=== PATIENT | female | born 1995 | race Caucasian/White ===

== ENCOUNTER 2020-04-01 16:33 | Emergency (ER) | payer OTHER ==
[~2020-04-01] VITALS: Ht 162.6 cm; Wt 90.7 kg
[2020-04-01 16:56] VITALS: BP 135/80
--- NOTE | 2020-04-01 17:50 | NUR ---
COVID19 TESTING DONE & SENT TO LAB.
== END 2020-04-01 17:51 | disposition home or self-care (01) ==
LOC: ER 16:39
DX: Z11.59 Encounter for screening for other viral diseases (principal)
CPT/HCPCS: 99283; C9803; U0003

== ENCOUNTER 2020-04-29 12:53 | Emergency (ER) | payer OTHER ==
[~2020-04-29] VITALS: Ht 162.6 cm; Wt 90.7 kg
[2020-04-29 13:28] VITALS: BP 129/82
--- NOTE | 2020-04-29 13:58 | NUR ---
covid swab sent
== END 2020-04-29 13:59 | disposition home or self-care (01) ==
LOC: ER 12:54
DX: Z20.828 Contact with and (suspected) exposure to other viral communicable diseases (principal)
CPT/HCPCS: 99283; C9803; U0003

== ENCOUNTER 2020-05-07 15:07 | Emergency (ER) | payer OTHER ==
[~2020-05-07] VITALS: Ht 162.6 cm; Wt 90.7 kg
[2020-05-07 15:11] VITALS: BP 128/81
--- NOTE | 2020-05-07 15:40 | NUR ---
covid 19 swab collected and sent to lab
--- NOTE | 2020-05-07 15:41 | NUR ---
Patient discharged to home in stable condition. Written and verbal after care instructions given. Patient verbalizes understanding of instruction.
== END 2020-05-07 15:41 | disposition home or self-care (01) ==
LOC: ER 15:09
DX: Z20.828 Contact with and (suspected) exposure to other viral communicable diseases (principal)
CPT/HCPCS: 99283; C9803; U0003

== ENCOUNTER 2020-08-04 14:47 | Emergency (ER) | payer OTHER ==
[~2020-08-04] VITALS: Ht 162.6 cm; Wt 90.7 kg
[2020-08-04 14:57] VITALS: BP 120/85
--- NOTE | 2020-08-04 15:44 | NUR ---
COVID SWAB SENT, Patient discharged to home in stable condition. Written and verbal after care instructions given. Patient verbalizes understanding of instruction.
== END 2020-08-04 15:45 | disposition home or self-care (01) ==
LOC: ER 14:48
DX: Z20.828 Contact with and (suspected) exposure to other viral communicable diseases (principal)
CPT/HCPCS: 99283; C9803; U0003

== ENCOUNTER 2020-08-18 11:34 | Emergency (ER) | payer OTHER ==
[~2020-08-18] VITALS: Ht 154.9 cm; Wt 75.7 kg
[2020-08-18 11:43] VITALS: BP 134/77
[2020-08-18] MEDS ORDERED: ACETAMINOPHEN ES 500 MG TABLET PO ONE (12:00)
[2020-08-18] MEDS ORDERED: ACETAMINOPHEN ES 500 MG TABLET ONE (12:03)
--- NOTE | 2020-08-19 18:17 | NUR ---
COVID PCR RESULT: NEGATIVE
== END 2020-08-18 12:27 | disposition home or self-care (01) ==
LOC: ER 11:35
DX: B34.9 Viral infection, unspecified (principal); R50.9 Fever, unspecified; Z20.828 Contact with and (suspected) exposure to other viral communicable diseases
CPT/HCPCS: 99283; C9803; U0003

== ENCOUNTER 2020-09-01 08:58 | Emergency (ER) | payer OTHER ==
[~2020-09-01] VITALS: Ht 162.6 cm; Wt 93.0 kg
[2020-09-01 09:10] VITALS: BP 132/79
== END 2020-09-01 10:11 | disposition home or self-care (01) ==
LOC: ER 09:06
DX: Z20.828 Contact with and (suspected) exposure to other viral communicable diseases (principal)
CPT/HCPCS: 99283; C9803; U0003

== ENCOUNTER 2020-09-11 14:02 | Emergency (ER) | payer OTHER ==
[~2020-09-11] VITALS: Ht 162.6 cm; Wt 85.7 kg
[2020-09-11 14:05] VITALS: BP 132/81
--- NOTE | 2020-09-11 14:42 | NUR ---
Patient discharged to home in stable condition. Written and verbal after care instructions given. Patient verbalizes understanding of instruction.
--- NOTE | 2020-09-12 10:16 | NUR ---
CALLED PT BUT NO ANSWER
== END 2020-09-11 15:07 | disposition home or self-care (01) ==
LOC: ER 14:03
DX: U07.1 COVID-19 (principal)
CPT/HCPCS: 99283; C9803; U0003

== ENCOUNTER 2021-06-22 11:55 | Emergency (ER) | payer OTHER ==
[~2021-06-22] VITALS: Ht 162.6 cm; Wt 72.6 kg
[2021-06-22 13:48] VITALS: BP 103/69
--- NOTE | 2021-06-22 14:03 | NUR ---
Patient discharged to home in stable condition. Written and verbal after care instructions given. Patient verbalizes understanding of instruction.
== END 2021-06-22 14:08 | disposition home or self-care (01) ==
LOC: ER 11:58
DX: S63.682A Other sprain of left thumb, initial encounter (principal); W23.0XXA Caught, crushed, jammed, or pinched between moving objects, initial encounter; Y93.89 Activity, other specified; Y92.89 Other specified places as the place of occurrence of the external cause; Y99.8 Other external cause status
CPT/HCPCS: 73130-TC

== ENCOUNTER 2021-08-14 17:04 | Emergency (ER) | payer SELFPAY ==
[~2021-08-14] VITALS: Ht 162.6 cm; Wt 72.6 kg
--- NOTE | 2021-08-14 17:04 | NUR ---
PT BIB SELF C/O UPPER ABDOMINAL PAIN SINCE SATURDAY NIGHT. PT IS AAOX4, NOT IN RESPIRATORY DISTRESS, V/S STABALE, KEPT RESTED AND COMFORTABLE. WILL CONTINUE TO MONITOR.
--- NOTE | 2021-08-14 17:37 | NUR ---
PT SEEN AND EXAMINEDB Y .
--- NOTE | 2021-08-14 17:40 | NUR ---
IV LINE ESTABLISHED BLOOD DRAWN AND SENT TO LAB.
--- NOTE | 2021-08-14 17:47 | NUR ---
[employer]ATOR AT BEDSIDE FOR ULTRASOUND.
[2021-08-14] MEDS ORDERED: MAG HYDROX/AL HYDROX/SIMETH 30 ML UDC ONE (17:48)
[2021-08-14] MEDS ORDERED: FAMOTIDINE/PF INJ 20 MG/2 ML VIAL IV ONE ×2 (17:49→18:00)
[2021-08-14] MEDS ORDERED: LIDOCAINE VISCOUS 2% UD 15 ML UDC ONE (17:49)
[2021-08-14 17:55] LABS: BASOPHILS # (AUTO) 0.1 K/uL (0.0-0.2); BASOPHILS % (AUTO) 1.6 % (0.0-2.0); EOSINOPHILS % (AUTO) 0.4 % (0.0-6.0); HEMATOCRIT 40 % (33-45); HEMOGLOBIN 13.4 g/dL (11.5-14.8); LYMPHOCYTES # (AUTO) 1.6 K/uL (0.8-4.8); LYMPHOCYTES % (AUTO) 21.1 % (20.0-44.0); MEAN CORPUSCULAR HGB CONC 34 g/dl (31.0-36.0); MEAN CORPUSCULAR VOLUME 90 fL (82-100); MONOCYTES # (AUTO) 0.6 K/uL (0.1-1.30); MONOCYTES % (AUTO) 7.7 % (2.0-12.0); NEUTROPHILS # (AUTO) 5.3 K/uL (1.8-8.9); NEUTROPHILS % (AUTO) 69.2 % (43.0-81.0); PLATELET COUNT (AUTO) 246 K/uL (150-450); RED BLOOD CELL COUNT(AUTO) 4.41 MIL/uL (4.0-5.2); WHITE BLOOD COUNT (AUTO) 7.6 K/uL (4.3-11.0)
[2021-08-14] MEDS ORDERED: MAG HYDROX/AL HYDROX/SIMETH 30 ML UDC PO ONE (18:00)
[2021-08-14] MEDS ORDERED: LIDOCAINE VISCOUS 2% UD 15 ML UDC PO ONE (18:00)
[2021-08-14 18:12] LABS: ALBUMIN 2.9 g/dL (3.4-5.0); BILIRUBIN,DIRECT 0.1 mg/dL (0.0-0.2); BILIRUBIN,TOTAL 0.2 mg/dL (0.2-1.0); CALCIUM, SERUM 8.7 mg/dL (8.5-10.1); CREATININE 0.8 mg/dL (0.6-1.3); POTASSIUM 3.7 mmol/L (3.5-5.1); TOTAL PROTEIN, SERUM 6.9 g/dL (6.4-8.2)
--- NOTE | 2021-08-14 18:22 | NUR ---
URINE COLLECTED AND SENT TO THE LAB
[2021-08-14 18:48] LABS: BILIRUBIN,URINE NEGATIVE (NEGATIVE); COLOR,URINE YELLOW (YELLOW); LEUKOCYTE ESTERASE ,URINE NEGATIVE (NEGATIVE); NITRITE, URINE NEGATIVE (NEGATIVE); PROTEIN,URINE NEGATIVE (NEGATIVE); UGLUCOSE >=1000 mg/dL (NEGATIVE); UROBILINOGEN,URINE 0.2 EU/dL (0.2)
[2021-08-14 18:55] LABS: BACTERIA,URINE None seen /HPF (None Seen); SQUAMOUS EPITHELIAL CELL,UR 0-2 /HPF (None Seen); WBC,URINE 0-2 /HPF (0-3)
[2021-08-14] MEDS ORDERED: FAMO-131 PO (20:09)
--- NOTE | 2021-08-14 20:19 | NUR ---
IV removed. Catheter intact and site benign. Pressure and 4x4 applied to site. No bleeding noted.Patient discharged to home in stable condition. Written and verbal after care instructions given. Patient verbalizes understanding of instruction.
[2021-08-14 23:57] VITALS: BP 119/66
== END 2021-08-14 20:20 | disposition home or self-care (01) ==
LOC: ER 17:08
DX: O26.92 Pregnancy related conditions, unspecified, second trimester (principal); R73.9 Hyperglycemia, unspecified; Q89.9 Congenital malformation, unspecified; O44.02 Complete placenta previa NOS or without hemorrhage, second trimester; Z3A.16 16 weeks gestation of pregnancy
CPT/HCPCS: 36415; 76705; 76805; 80048; 80076; 81001; 82962; 83690; 84702; 85025; 86850; 96374; 99284; J3490